=== PATIENT | female | born 1990 | race Caucasian/White ===

== ENCOUNTER 2016-06-27 06:27 | Emergency (ER) | payer MEDICARE ==
[2016-06-27 08:19] LABS: HEMOGLOBIN 12.8 gm/dl (12.3-15.3); RED BLOOD COUNT 4.76 M/UL (4.00-5.10); WHITE BLOOD COUNT 13.8 K/UL (4.5-11.0)
[2016-06-27 08:39] LABS: BUN/CREATININE RATIO 21 (0-10)
== END 2016-06-27 22:02 | disposition home or self-care (01) ==
LOC: ER1 06:27
PROVIDERS: Physician Assistant
DX: R07.1 Chest pain on breathing (principal); R11.2 Nausea with vomiting, unspecified; J45.909 Unspecified asthma, uncomplicated; F32.9 Major depressive disorder, single episode, unspecified; Z88.0 Allergy status to penicillin; Z79.899 Other long term (current) drug therapy
CPT/HCPCS: 36415; 71020; 80053; 81001; 82550; 82553; 83690; 83874; 84484; 84703; 85025; 85379; 87086; 93005; 96361; 96374; 96375; 96376; 99285; J1885; J2405; J2550; J7050; Q9963

== ENCOUNTER → 2016-07-05 | Outpatient (CLI) | payer MEDICARE | LOC: RT 13:38 | DX: R00.0 Tachycardia, unspecified (principal) ==

== ENCOUNTER → 2016-07-17 | Outpatient (CLI) | payer MEDICARE | LOC: KOH-I 07-12 08:45 | DX: D72.829 Elevated white blood cell count, unspecified (principal) | CPT/HCPCS: 76705 ==